=== PATIENT | female | born 2000 | race Hispanic/Latino ===

== ENCOUNTER 2022-12-11 11:53 | Observation (INO) | payer MEDICAID ==
[~2022-12-11] VITALS: Ht 160 cm; Wt 98.4 kg
[~2022-12-11 11:53] MED LIST: PREN1TAB80 PO
[2022-12-11 11:55] VITALS: BP 138/70; PULSE 110; RESP 20
[2022-12-11] MEDS ORDERED: LACTATED RINGERS 1000ML 1,000 ML IV PRN (12:30)
[2022-12-11 13:03] LABS: APPEARANCE,URINE TURBID (CLEAR); BILIRUBIN,URINE NEGATIVE (NEGATIVE); COLOR,URINE RED (YELLOW); GLUCOSE, URINE (UA) NEGATIVE (NEGATIVE); KETONES,URINE 15 mg/dL (NEGATIVE); LEUKOCYTE ESTERASE ,URINE TRACE Leu/uL (NEGATIVE); NITRATE,URINE NEGATIVE (NEGATIVE); OCCULT BLOOD,URINE MODERATE (NEGATIVE); PH,URINE 6.5 (5.0-8.0); PROTEIN,URINE 100 mg/dL (NEGATIVE); UROBILINOGEN,URINE 0.2 mg/dL (0.2-1.0)
[2022-12-11 13:05] LABS: ADD UA MICROSCOPIC YES
[2022-12-11 13:06] LABS: RBC,URINE TNTC /HPF (0-1)
[2022-12-11 13:07] LABS: BACTERIA,URINE Few /HPF (None Seen); SQUAMOUS EPITHELIAL CELL,UR Rare /HPF (0-2)
[2022-12-11] MEDS ORDERED: CEFTRIAXONE 1G VIAL IVPB ONE (14:30)
== END 2022-12-11 15:47 | disposition home or self-care (01) ==
LOC: EDH 11:53 → LDH 12:03
PROVIDERS: ADMIT Obstetrics & Gynecology; ATTEND Obstetrics & Gynecology
DX: O26.852 Spotting complicating pregnancy, second trimester (principal); Z3A.25 25 weeks gestation of pregnancy
CPT/HCPCS: 96365; 59025; 81001; 76770; 76805; G0378 ×4; G0379; J0696; J7120; 96360

== ENCOUNTER 2023-03-08 03:29 | Observation (INO) | payer MEDICAID ==
[~2023-03-08] VITALS: Ht 160 cm; Wt 96.2 kg
[2023-03-08 03:31] VITALS: BP 129/75; PULSE 112; RESP 20
[2023-03-08 04:06] LABS: APPEARANCE,URINE CLOUDY (CLEAR); BILIRUBIN,URINE NEGATIVE (NEGATIVE); COLOR,URINE YELLOW (YELLOW); GLUCOSE, URINE (UA) NEGATIVE (NEGATIVE); KETONES,URINE 5 mg/dL (NEGATIVE); LEUKOCYTE ESTERASE ,URINE 250 Leu/uL (NEGATIVE); NITRATE,URINE 1+ (NEGATIVE); OCCULT BLOOD,URINE NEGATIVE (NEGATIVE); PROTEIN,URINE 100 mg/dL (NEGATIVE); UROBILINOGEN,URINE 0.2 mg/dL (0.2-1.0)
[2023-03-08 04:13] LABS: ADD UA MICROSCOPIC YES; AMPHET/METH SCREEN,URINE NEGATIVE (NEGATIVE); BARBITURATE SCREEN, URINE NEGATIVE (NEGATIVE); BENZODIAZEPINES SCREEN,URINE NEGATIVE (NEGATIVE); CANNABINOID SCREEN,URINE NEGATIVE (NEGATIVE); COCAINE SCREEN,URINE NEGATIVE (NEGATIVE); OPIATE SCREEN,URINE NEGATIVE (NEGATIVE); PHENCYCLIDINE SCREEN,URINE NEGATIVE (NEGATIVE)
[2023-03-08 04:21] LABS: BACTERIA,URINE MANY /HPF (None Seen); MUCUS,URINE MANY LPF (None Seen); SQUAMOUS EPITHELIAL CELL,UR FEW /HPF (0-2); WBC,URINE 51-100 /HPF (0-1)
== END 2023-03-08 05:44 | disposition home or self-care (01) ==
LOC: EDH 03:29 → LDH 03:31
PROVIDERS: ADMIT Obstetrics & Gynecology; ATTEND Obstetrics & Gynecology
DX: O62.9 Abnormality of forces of labor, unspecified (principal); O26.893 Other specified pregnancy related conditions, third trimester; R10.2 Pelvic and perineal pain; Z3A.37 37 weeks gestation of pregnancy; Z79.899 Other long term (current) drug therapy
CPT/HCPCS: 59025; 80305; 87077; 87088; 87186; 81001; G0378 ×2; G0379

== ENCOUNTER 2023-03-11 06:29 | Inpatient (IN) | payer MEDICAID ==
[~2023-03-11] VITALS: Ht 160 cm; Wt 105.7 kg
[2023-03-11] MEDS ORDERED: OXYTOCIN-LR 30 UNITS/500ML 500 ML IV SCH ×3 (07:00→15:30)
[2023-03-11] MEDS ORDERED: LACTATED RINGERS 1000ML 1,000 ML IV PRN (07:00)
[2023-03-11 07:32] LABS: HEMATOCRIT 27.2 % (36-48); MEAN CORPUSCULAR HEMOGLOBIN 23.9 pg (27.0-33.0); MEAN CORPUSCULAR HGB CONC 31.6 g/dL (32.0-36.0); MEAN CORPUSCULAR VOLUME 75.6 fL (79-99); PLATELET COUNT (AUTO) 278 K/uL (130-400); WHITE BLOOD COUNT (AUTO) 9.6 K/uL (4.8-10.8)
[2023-03-11 07:36] LABS: APPEARANCE,URINE TURBID (CLEAR); BILIRUBIN,URINE SMALL mg/dL (NEGATIVE); COLOR,URINE ORANGE (YELLOW); GLUCOSE, URINE (UA) NEGATIVE (NEGATIVE); KETONES,URINE 15 mg/dL (NEGATIVE); LEUKOCYTE ESTERASE ,URINE TRACE Leu/uL (NEGATIVE); NITRATE,URINE NEGATIVE (NEGATIVE); OCCULT BLOOD,URINE LARGE (NEGATIVE); PH,URINE 7.5 (5.0-8.0); PROTEIN,URINE 30 mg/dL (NEGATIVE)
[2023-03-11 07:37] LABS: ADD UA MICROSCOPIC YES
[2023-03-11 07:45] LABS: RBC,URINE TNTC /HPF (0-1)
[2023-03-11 07:46] LABS: BACTERIA,URINE Few /HPF (None Seen); SQUAMOUS EPITHELIAL CELL,UR Few /HPF (0-2)
[2023-03-11] MEDS ORDERED: MEPERIDINE-PF 50 MG/ML SYG IVP PRN (08:00)
[2023-03-11] MEDS ORDERED: LACTATED RINGERS 500 ML 500 ML IV PRN (08:00)
[2023-03-11] MEDS ORDERED: ROPIVACAINE 0.2% 100ML VIAL 100 ML EP SCH (08:00)
[2023-03-11] MEDS ORDERED: EPHEDRINE SULFATE 50 MG/ML AMPULE IVP PRN (08:00)
[2023-03-11] MEDS ORDERED: PROMETHAZINE HCL 25 MG/ML 1ML AMPULE IM PRN (08:00)
[2023-03-11] MEDS ORDERED: NALOXONE HCL 0.4 MG/1 ML ML IV PRN (08:00)
[2023-03-11 08:44] LABS: HIV 1&2 ANTIBODY Non-Reactive (Negative)
[2023-03-11 08:45] LABS: HIV-1 p24 Antigen Non-Reactive (Negative)
[2023-03-11 09:09] LABS: RAPID PLASMA REAGIN NONREACTIVE (NONREACTIVE)
[2023-03-11] MEDS ORDERED: LIDOCAINE HCL MPF 1% 5ML VIAL ONE (10:53)
[2023-03-11] MEDS ORDERED: METHYLERGONOVINE MALEATE 0.2 MG/1 ML ML ONE (14:27)
[2023-03-11] MEDS ORDERED: MISOPROSTOL 200 MCG TABLET ONE (14:28)
[2023-03-11] MEDS ORDERED: MEASLES/MUMPS/RUBELLA VACCINE, LIVE 0.5 ML/VIAL SQ PRN (15:30)
[2023-03-11] MEDS ORDERED: LANOLIN 30GM OINTMENT TP PRN (15:30)
[2023-03-11] MEDS ORDERED: WITCH HAZEL 1 PAD TP PRN (15:30)
[2023-03-11] MEDS ORDERED: DIPH,PERTUSS(ACELL),TET VAC/PF 0.5 ML VIAL IM PRN (15:30)
[2023-03-11] MEDS ORDERED: ACETAMINOPHEN 325 MG TAB PO PRN (15:30)
[2023-03-11] MEDS ORDERED: ACETAMINOPHEN WITH CODEINE 1 TAB TAB PO PRN (15:30)
[2023-03-11] MEDS ORDERED: BENZOCAINE/LANOLIN/ALOE VERA 60 ML AEROSOL TP PRN (15:30)
[2023-03-11 16:52] VITALS: BP 111/62; PULSE 97; RESP 18
[2023-03-11] MEDS: IBUPROFEN 600 MG TABLET PO PRN (18:14)
[2023-03-11 19:22] VITALS: BP 110/75; PULSE 90; RESP 18
[2023-03-11] MEDS ORDERED: PREN1TAB63 PO (19:32)
[2023-03-11] MEDS: DOCUSATE SODIUM 100 MG CAP PO SCH (21:21)
[2023-03-11 23:09] VITALS: BP 109/73; PULSE 90; RESP 18
[2023-03-12] MEDS: IBUPROFEN 600 MG TABLET PO PRN ×2 (02:06→08:52)
[2023-03-12 03:59] VITALS: BP 112/78; PULSE 88; RESP 18
[2023-03-12 06:48] LABS: MEAN CORPUSCULAR HEMOGLOBIN 23.9 pg (27.0-33.0); MEAN CORPUSCULAR HGB CONC 30.8 g/dL (32.0-36.0); MEAN CORPUSCULAR VOLUME 77.4 fL (79-99); RED BLOOD CELL COUNT(AUTO) 3.1 MIL/uL (4.00-5.50); RED CELL DISTRIBUTION WIDTH 15.9 % (11.0-15.5); WHITE BLOOD COUNT (AUTO) 11.1 K/uL (4.8-10.8)
[2023-03-12 07:06] VITALS: BP 114/67; PULSE 82; RESP 18
[2023-03-12] MEDS: DOCUSATE SODIUM 100 MG CAP PO SCH (08:51)
[2023-03-12 12:00] VITALS: BP 116/70; PULSE 95; RESP 18
[2023-03-12] MEDS ORDERED: IBUP-2088 PO (14:29)
== END 2023-03-12 15:20 | disposition home or self-care (01) | DRG 560 ==
LOC: EDH 06:29 → OBSVTOIN 06:30 → UNDOADMOB 06:30 → LDH 06:30 → WSH 16:50
PROVIDERS: ADMIT Obstetrics & Gynecology; ATTEND Obstetrics & Gynecology
PROC: 10E0XZZ Delivery of Products of Conception, External Approach (ICD-10-PCS; principal; 2023-03-11)
PROC: 10907ZC Drainage of Amniotic Fluid, Therapeutic from Products of Conception, Via Natural or Artificial Opening (ICD-10-PCS; 2023-03-11)
PROC: 3E0R3BZ Introduction of Anesthetic Agent into Spinal Canal, Percutaneous Approach (ICD-10-PCS; 2023-03-11)
PROC: 00HU33Z Insertion of Infusion Device into Spinal Canal, Percutaneous Approach (ICD-10-PCS; 2023-03-11)
DX: O80 Encounter for full-term uncomplicated delivery (principal); Z37.0 Single live birth; Z3A.38 38 weeks gestation of pregnancy
CPT/HCPCS: 36415; 81001; 85027; 86592; 86701; 86850; 86900; 86901; 87340; 87390; A4314; G0378; J2175; J2210; J2550; J2795; J3490; J7120